=== PATIENT | male | born 1955 | race Caucasian/White ===

== ENCOUNTER 2017-12-24 15:46 | Emergency (ER) | payer OTHER ==
--- NOTE | 2017-12-24 16:34 | EDM.PDOC ---
ED HPI GENERAL MEDICAL PROBLEM - General Chief Complaint: Eye Problems Stated Complaint: eye injury Time Seen by Provider: 12/24/17 15:55 Source of Information: Reports: Patient History Limitations: Reports: No Limitations - History of Present Illness INITIAL COMMENTS - FREE TEXT/NARRATIVE: c/o L eye injury pt works at [employer], he was turning a valve when water dripped into his eye which may have been 70-80 degrees, had immediate burning he walked 10' to a flush station and flushed for 3-4 min, then walked inside the building a flushed for another 15 min, then was brought here by a co-worker feeling better now, some irritation but not severe, acuity 20/30 b/l with correction this pipe leaks on a regular basis and pt usually steps to the side, was wearing his regular glasses at the time, water from above between eyebrow and glass frame the "fresh water" is heated and used to mix with the beets, there is sulfuric acid that is used to clean out the vat after the mixing is completed and pt thought there could be a small amount of sulfuric acid contaminating the fresh water lives with his brother, insisted that he not miss work as he has a perfect attendance record, works 8a to 4p tomorrow Duration: Improving - Related Data Allergies Allergy/AdvReac Type Severity Reaction Status Date / Time No Known Allergies Allergy Verified 12/24/17 16:21 Home Meds: Home Meds Losartan [Cozaar] 50 mg PO DAILY 12/24/17 [History] sitaGLIPtin Phos/Metformin HCl [Janumet 50-1,000 MG] 1 tab PO DAILY 12/24/17 [ History] ED ROS GENERAL - Review of Systems Review Of Systems: See Below Constitutional: Reports: No Symptoms HEENT: Reports: Eye Pain. Denies: Eye Discharge Respiratory: Reports: No Symptoms Cardiovascular: Reports: No Symptoms Endocrine: Reports: No Symptoms GI/Abdominal: Reports: No Symptoms : Reports: No Symptoms Musculoskeletal: Reports: No Symptoms Skin: Reports: No Symptoms Neurological: Reports: No Symptoms Psychiatric: Reports: No Symptoms Hematologic/Lymphatic: Reports: No Symptoms Immunologic: Reports: No Symptoms ED EXAM GENERAL W FULL EYE - Physical Exam Exam: See Below Exam Limited By: No Limitations General Appearance: Alert, WD/WN, No Apparent Distress Eye Exam: Bilateral Eye: Other (pt not blinking, no swell, no chemosis, slight injection conjunctiva, no f.b., tetracaine and flourescein applied, very superficial abrasion of lower 25% from 5 o-clock to 6 o-click, about 4 x 3 mm) Course - Vital Signs Last Recorded V/S: Last Vital Signs Temp 36.8 C 12/24/17 16:10 Pulse 98 12/24/17 16:10 Resp 17 12/24/17 16:10 BP 148/76 H 12/24/17 16:10 Pulse Ox 98 12/24/17 16:10 Departure - Departure Time of Disposition: 16:30 Disposition: Home, Self-Care 01 Condition: Good Clinical Impression: Chemical burn of eye - Discharge Information *PRESCRIPTION DRUG MONITORING PROGRAM REVIEWED*: Not Applicable *COPY OF PRESCRIPTION DRUG MONITORING REPORT IN PATIENT TONE: Not Applicable Instructions: Chemical Burn of the Eyes, Adult Referrals: Crystal Champion NP [Primary Care Provider] - Additional Instructions: Rest today. May work tomorrow without restriction. However, you will need to see an teacher citizenship tomorrow. There is a chemical injury to the lower portion of the cornea, which typically heals overnight, although you will need to get it rechecked. Do not rub eye. May use a cool compress every 30 minutes as needed. If you eye feels worse, go to the Emergency Department in [place], where an formula maker is on-call.
== END 2017-12-24 17:00 | disposition home or self-care (01) ==
LOC: FB.ED 15:46
DX: T54.2X1A Toxic effect of corrosive acids and acid-like substances, accidental (unintentional), initial encounter (principal); T26.92XA Corrosion of left eye and adnexa, part unspecified, initial encounter; Y99.0 Civilian activity done for income or pay; Z79.899 Other long term (current) drug therapy; Y92.69 Other specified industrial and construction area as the place of occurrence of the external cause
CPT/HCPCS: 99000; 99283

== ENCOUNTER 2018-01-02 18:18 | Emergency (ER) | payer OTHER ==
[2018-01-02] MEDS ORDERED: Diphtheria,Pertussis(Acell),Tetanus Vaccine 0.5 ML SDV IM ONE (19:15)
--- NOTE | 2018-01-02 19:38 | EDM.PDOC ---
ED HPI GENERAL MEDICAL PROBLEM - General Chief Complaint: Eye Problems Stated Complaint: R EYE IRRITATION Time Seen by Provider: 01/02/18 18:20 Source of Information: Reports: Patient History Limitations: Reports: No Limitations - History of Present Illness INITIAL COMMENTS - FREE TEXT/NARRATIVE: This 62-year-old employee of [employer] WAS EXPOSED TO LIQUID [employer]KALINE CHEMICAL QT 1800 THIS KEN[place] AND HIS EYE WAS WASHED UNDER EYE WASH OF TAP RUNNING WATER FOR 20 MINUTES he had a similar injury to his other left eye 2 weeks ago and this has resolved He arrives to the [facility] ED for further evaluation. TETANUS not up-to-date. 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 MACHINE TENDER: eye wash station 20 minutes Right Eye Pain Score (Numeric/FACES): 2 - Related Data Allergies Allergy/AdvReac Type Severity Reaction Status Date / Time No Known Allergies Allergy Verified 01/02/18 18:36 Home Meds: Home Meds Losartan [Cozaar] 50 mg PO DAILY 12/24/17 [History] sitaGLIPtin Phos/Metformin HCl [Janumet 50-1,000 MG] 1 tab PO DAILY 12/24/17 [ History] Past Medical History Cardiovascular History: Reports: High Cholesterol, Hypertension Endocrine/Metabolic History: Reports: Diabetes, Type II - Past Surgical History GI Surgical History: Reports: Appendectomy, Other (See Below) Other GI Surgeries/Procedures: 2 hernia repair. Musculoskeletal Surgical History: Reports: Other (See Below) Other Musculoskeletal Surgeries/Procedures:: bilateral knee surgery. Social & Family History - Family History Family Medical History: Noncontributory - Tobacco Use Smoking Status *Q: Never Smoker - Caffeine Use Caffeine Use: Reports: Soda Caffeine Use Comment: states that he rarely drinks coffee and drinks lots of pop. - Recreational Drug Use Recreational Drug Use: No ED ROS GENERAL - Review of Systems Review Of Systems: ROS reveals no pertinent complaints other than HPI. ED EXAM GENERAL W FULL EYE - Physical Exam Exam: See Below Text/Narrative:: The patient is a very then was without pain and vision changes he has a Snellen exam patient of 20/100 bilateral. Patient is in no acute distress Exam Limited By: No Limitations General Appearance: Alert, WD/WN, No Apparent Distress Eye Exam: Bilateral Eye: Abnormal EOM, Normal Fundi, Normal Inspection Visual Acuity (R) 20/: 100 Visual Acuity (L) 20/: 100 Eyelids: Bilateral: Normal Appearance (No fluorescein pickup no corneal opacification chemical keratitis minimal scleral injection no corneal edema or chemosis) Cornea Exam: Bilateral: Normal Appearance Extraocular Movements: Bilateral: Intact Pupils: Normal Accommodation Pupillary Size: Bilateral: 3 mm Anterior Chamber: Bilateral: Normal Appearance Posterior Chamber: Bilateral: Normal Funduscopic Ears: Normal External Exam Nose: Normal Inspection Throat/Mouth: Normal Inspection Head: Atraumatic Neck: Normal Inspection Cardiovascular: Normal Peripheral Pulses, Regular Rate, Rhythm (Male) Exam: Deferred (Female) Exam: Deferred Extremities: Normal Inspection Neurological: Alert, Oriented, No Motor/Sensory Deficits Psychiatric: Normal Affect, Normal Mood Skin Exam: Warm, Dry, Intact Course - Vital Signs Last Recorded V/S: Last Vital Signs Temp 36.9 C 01/02/18 18:18 Pulse 64 01/02/18 18:18 Resp 18 01/02/18 18:18 BP 133/68 01/02/18 18:18 Pulse Ox 99 01/02/18 18:18 - Orders/Labs/Meds Orders: Active Orders 24 hr Category Date Time Status Vaccines to be Administered [RC] PER UNIT ROUTINE Care 01/02/18 19:15 Active Meds: Medications Discontinued Medications Generic Name Dose Route Start Last Admin Trade Name Freq PRN Reason Stop Dose Admin Diphtheria/Tetanus/Acell Pertussis 0.5 ml 01/02/18 19:15 Adacel IM 01/02/18 19:16 .ONCE ONE Departure - Departure Time of Disposition: 18:40 (No evidence for chemical keratitis or eye irritation. The staff at [facility] ( [facility]) [employer] did a beautiful job with washing his eye.) Disposition: Home, Self-Care 01 Clinical Impression: Eye abnormality - Discharge Information *PRESCRIPTION DRUG MONITORING PROGRAM REVIEWED*: Not Applicable *COPY OF PRESCRIPTION DRUG MONITORING REPORT IN PATIENT TONE: Not Applicable Referrals: Crystal Champion NP [Primary Care Provider] - Forms: ED Department Discharge Additional Instructions: Diagnosis right eye alkaline chemical exposure with 20 minute lavage and no complications, no evidence for chemical fluorescein uptake on eye Assessment . Wears corrective glasses at work. Follow up in 12-24 hours 24 hours he had increased eye pain or irritation. U artificial tears as needed to make her eyes feel comfortable. He was a leftover artificial tears to have the previous I injury. DPT/tetanus given - My Orders Last 24 Hours: My Active Orders 01/02/18 19:15 Vaccines to be Administered [RC] PER UNIT ROUTINE - Assessment/Plan Last 24 Hours: My Active Orders 01/02/18 19:15 Vaccines to be Administered [RC] PER UNIT ROUTINE
== END 2018-01-02 19:45 | disposition home or self-care (01) ==
LOC: FB.ED 18:18
DX: H57.89 Other specified disorders of eye and adnexa (principal); I10 Essential (primary) hypertension; E11.9 Type 2 diabetes mellitus without complications; E78.00 Pure hypercholesterolemia, unspecified; Z23 Encounter for immunization
CPT/HCPCS: 90471; 90715; 99000; 99282

== ENCOUNTER 2021-09-15 08:34 | Emergency (ER) | payer OTHER ==
[2021-09-15] MEDS ORDERED: Acetaminophen 325 MG Tab PO ONE (09:00)
== END 2021-09-15 11:05 | disposition home or self-care (01) ==
LOC: FB.ED 08:34
DX: S30.0XXA Contusion of lower back and pelvis, initial encounter (principal); I10 Essential (primary) hypertension; E11.9 Type 2 diabetes mellitus without complications; Z79.82 Long term (current) use of aspirin; Z79.899 Other long term (current) drug therapy; W11.XXXA Fall on and from ladder, initial encounter; Y99.0 Civilian activity done for income or pay
CPT/HCPCS: 72100; 73521; 99000; 99283; A9270

== ENCOUNTER 2024-09-21 07:36 | Day surgery (SDC) | payer OTHER ==
[2024-09-21] MEDS ORDERED: Sodium Chloride 0.9% 10 ML Syringe FLUSH PRN (08:00)
[2024-09-21] MEDS ORDERED: Lactated Ringers 1,000 ML IV PRN (08:00)
[2024-09-21] MEDS ORDERED: acetaZOLAMIDE 500 MG Cap.ER PO ONE (10:00)
== END 2024-09-21 08:50 | disposition home or self-care (01) ==
LOC: FB.SDS 07:36
PROVIDERS: ATTEND Ophthalmology
DX: H26.9 Unspecified cataract (principal); Z53.8 Procedure and treatment not carried out for other reasons

== ENCOUNTER 2024-09-27 05:55 | Day surgery (SDC) | payer OTHER ==
[2024-09-27] MEDS ORDERED: Ondansetron 4 MG/2 ML SDV IVPUSH ONE (05:56)
[2024-09-27] MEDS ORDERED: Propofol 200 MG/20 ML SDV IV ONE (05:56)
[2024-09-27] MEDS ORDERED: Ketamine 500 mg/10 ML MDV IV ONE (05:56)
[2024-09-27] MEDS ORDERED: Midazolam 1 MG/ML 2 ML SDV IV ONE (05:56)
[2024-09-27] MEDS ORDERED: fentaNYL 100 MCG/2 ML SDV IV ONE (05:56)
[2024-09-27] MEDS ORDERED: Sodium Chloride 0.9% 10 ML Syringe FLUSH PRN (06:15)
[2024-09-27] MEDS: Lactated Ringers 1,000 ML IV SCH (06:50)
[2024-09-27] MEDS: ceFAZolin 1 GM Vial IVPUSH ONE (06:57)
[2024-09-27] MEDS: Bupivacaine 0.5% 50 ML MDV INJECT ONE (08:02)
[2024-09-27] MEDS: Lidocaine 1% with EPINEPHrine 1:100,000 20 ML MDV INJECT ONE (08:02)
== END 2024-09-27 11:45 | disposition home or self-care (01) ==
LOC: FB.SDS 05:55
PROVIDERS: ATTEND Surgery
DX: K40.90 Unilateral inguinal hernia, without obstruction or gangrene, not specified as recurrent (principal); D17.6 Benign lipomatous neoplasm of spermatic cord; E11.9 Type 2 diabetes mellitus without complications; E78.2 Mixed hyperlipidemia; E66.3 Overweight; Z79.4 Long term (current) use of insulin; Z68.25 Body mass index [BMI] 25.0-25.9, adult; Z79.899 Other long term (current) drug therapy
CPT/HCPCS: 00860; 49505; 55520; 82947; 88304; C1781; J0665; J0690; J2004; J2250; J2405; J2704; J3010; J3490; J7120

== ENCOUNTER 2024-10-05 08:18 | Day surgery (SDC) | payer OTHER ==
[2024-10-05] MEDS ORDERED: Midazolam 1 MG/ML 2 ML SDV IV ONE (08:19)
[2024-10-05] MEDS ORDERED: fentaNYL 100 MCG/2 ML SDV IV ONE (08:19)
[2024-10-05] MEDS ORDERED: Lactated Ringers 1,000 ML IV PRN (08:45)
[2024-10-05] MEDS ORDERED: Sodium Chloride 0.9% 10 ML Syringe FLUSH PRN (08:45)
[2024-10-05] MEDS: acetaZOLAMIDE 500 MG Cap.ER PO ONE (10:47)
== END 2024-10-05 11:05 | disposition home or self-care (01) ==
LOC: FB.SDS 08:18
PROVIDERS: ATTEND Ophthalmology
DX: E11.36 Type 2 diabetes mellitus with diabetic cataract (principal); H25.811 Combined forms of age-related cataract, right eye; E66.3 Overweight; I10 Essential (primary) hypertension; E78.2 Mixed hyperlipidemia; D64.9 Anemia, unspecified; Z79.899 Other long term (current) drug therapy
CPT/HCPCS: 00142; 66984; 82947; A9270; J2250; J3010; V2632

== ENCOUNTER 2024-10-19 08:30 | Day surgery (SDC) | payer OTHER ==
[2024-10-19] MEDS ORDERED: fentaNYL 100 MCG/2 ML SDV IV ONE (08:31)
[2024-10-19] MEDS ORDERED: Midazolam 1 MG/ML 2 ML SDV IV ONE (08:31)
[2024-10-19] MEDS: Lactated Ringers 1,000 ML IV PRN (08:57)
[2024-10-19] MEDS ORDERED: Sodium Chloride 0.9% 10 ML Syringe FLUSH PRN (09:00)
[2024-10-19] MEDS: acetaZOLAMIDE 500 MG Cap.ER PO ONE (11:21)
== END 2024-10-19 11:25 | disposition home or self-care (01) ==
LOC: FB.SDS 08:30
PROVIDERS: ATTEND Ophthalmology
DX: E11.36 Type 2 diabetes mellitus with diabetic cataract (principal); H25.813 Combined forms of age-related cataract, bilateral; H35.371 Puckering of macula, right eye; H43.822 Vitreomacular adhesion, left eye; E66.3 Overweight; I10 Essential (primary) hypertension; Z79.899 Other long term (current) drug therapy
CPT/HCPCS: 00142; 66984; A9270; J2250; J3010; J7120; V2632